=== PATIENT | female | born 1960 | race Caucasian/White ===

== ENCOUNTER → 2018-02-27 | Outpatient (CLI) | payer BC ==
[~2018-02-27] MED LIST: ACTOPLUS MET PO; ASPI325; ASPI325 PO; ASPI81EC; ATOR20 PO; BASAGLAR K100 UNIT/1 SC; BUPR100; CLOP75 PO; ESTR2; FENO145 PO; FENO160; Glimepiride4 MG PO; IRBE150 PO; Isosorbide Mono30 MG PO; Januvia50 MG PO; LIRA0.6P; METF850; METO50ER; Norco 5-325 Ta1 EACH PO; PROBIOTIC1 EAC1 PO; SERT25 PO; SERT50 PO; SITA50T2 PO; VITAMIN D35000 UNI1 PO; Valium5 MG PO; [UNRECOGNIZED DRUG - REMARK]
[2018-02-27 19:52] LABS: Microalb/Creat Ratio UR, Rand 6.361 mg/g (0.000-30.000); Microalbumin, Random Urine 8.46 mg/L (0.000-20.000)
== END ==
LOC: LAB EV 16:31 → LAB SHORT 16:31
PROVIDERS: Family Medicine
DX: E11.22 Type 2 diabetes mellitus with diabetic chronic kidney disease (principal)
CPT/HCPCS: 82043; 82570

== ENCOUNTER 2019-11-16 09:06 | Day surgery (SDC) | payer BC ==
[~2019-11-16] VITALS: Ht 157.5 cm; Wt 82.7 kg
[2019-11-16] MEDS ORDERED: BASAGLAR K100 UNIT/2 (09:51)
[2019-11-16] MEDS ORDERED: TRULICITY1.5 MG/0.5 (09:52)
[2019-11-16] MEDS ORDERED: METF500 PO (09:52)
--- NOTE | 2019-11-16 09:56 | NUR ---
11/16/19 0956 Brooklyn Wolf FIRST IV ATTEMPT IN RIGHT HAND INFILTRATED, BY ORSC.CML. SECOND ATTEMPT IN RIGHT WRIST WAS SUCCESSFUL AND TOLERATED WELL, BY ORS.RCL.
== END 2019-11-16 11:14 | disposition home or self-care (01) ==
LOC: ORSCSDS 09:06
PROVIDERS: Internal Medicine Gastroenterology
PROC: 0DB88ZX Excision of Small Intestine, Via Natural or Artificial Opening Endoscopic, Diagnostic (ICD-10-PCS; principal; 2019-11-16 10:30)
DX: R11.0 Nausea (principal); R19.7 Diarrhea, unspecified; R10.84 Generalized abdominal pain; G47.33 Obstructive sleep apnea (adult) (pediatric); K29.80 Duodenitis without bleeding; D64.9 Anemia, unspecified; E78.00 Pure hypercholesterolemia, unspecified; E11.9 Type 2 diabetes mellitus without complications; I10 Essential (primary) hypertension; R63.4 Abnormal weight loss; Z68.34 Body mass index [BMI] 34.0-34.9, adult; Z79.84 Long term (current) use of oral hypoglycemic drugs; Z79.01 Long term (current) use of anticoagulants; Z79.899 Other long term (current) drug therapy
CPT/HCPCS: 82947; 87081; 88305; J2704; J7120

== ENCOUNTER 2020-02-22 11:37 | Day surgery (SDC) | payer BC ==
[~2020-02-22] VITALS: Ht 160 cm; Wt 79.9 kg
[~2020-02-22 11:37] MED LIST changes: +BASAGLAR K100 UNIT/2; +Fergon240 M1 PO; +GABA300 PO; +METF500 PO; -METO50ER; +METO50ER PO; +Metformin HCl1000 MG PO; +TRULICITY1.5 MG/0.5 SC
[2020-02-22] MEDS ORDERED: METO100ER (13:08)
--- NOTE | 2020-02-22 15:52 | NUR ---
02/22/20 1552 Tammi Odell 1427 RECIEVED REPORT FROM [facility] HR ELEVATED 114, BP ELEVATED 186/89. DR FELIX REQUESTING 12 LEAD EKG. PT DENIES PAIN AT THIS TIME. 1454 PT STARTS TO COMPLAIN OF A "SCRATCHY" FEELING IN HER CHEST. EKG REVEALS ST WAVE ABNORMALITY. PT GIVE 325MG ASA PER . PT TRANSFERRED TO ED. REPORT GIVEN BY DR CARTER TO ED STAFF. PT LEFT IN THEIR CARE. MOM WAS UPDATED AND WENT HOME.
--- NOTE | 2020-02-22 15:55 | NUR ---
02/22/20 1555 Kerri Rothman LATE ENTRY FOR TODAY DR. CARTER CALLED TO ENDO ROOM TO HELP WITH PATIENT. PATIENT COUGHING/WRETCHING/ WITH A BLOODY NOSE, HR ELEVATED ALONG WITH BP. PATIENT HAD VOMITING EPISODE AT THE BEGINNING OF THE CASE, ZOFRAN GIVEN. WAITED UNTIL PATIENT CALMED DOWN TO CONTINUE ADVANCING THE COLONOSCOPE, SCOPE WAS ADVANCED PATIENT STARTED WRETCHING AGAIN. SCOPE CHANGED OUT TO PEDIATRIC SCOPE AND PATIENT WAS GIVEN 25MCG FENTANYL AND THEN ANOTHER 25MCG TWO MINUTES LATER. RN CONTINUED WITH PROPROFOL AND PATIENT SETTLED DOWN. DURING WITHDRAWAL OF SCOPE PATIENT STARTED TO WRETCH AND COUGH AND HAVE A BLOODY NOSE. DR. CARTER CALLED IN TO ASSIST WITH PATIENT BECAUSE HER HR AND BP WERE ELEVATED. PROCEDURE FINISHED AND PATIENT AWOKE BUT WAS COUGHING AND WRETCHING. PATIENT TAKEN TO HER ROOM AND REPORT WAS GIVEN TO CAMERON BOYKIN.
== END 2020-02-22 15:30 | disposition home or self-care (01) ==
LOC: ORSCSDS 11:37
PROVIDERS: Internal Medicine Gastroenterology
PROC: 0DBK8ZX Excision of Ascending Colon, Via Natural or Artificial Opening Endoscopic, Diagnostic (ICD-10-PCS; principal; 2020-02-22 12:45)
PROC: 0DBN8ZX Excision of Sigmoid Colon, Via Natural or Artificial Opening Endoscopic, Diagnostic (ICD-10-PCS; principal; 2020-02-22 12:45)
PROC: 0DBE8ZX Excision of Large Intestine, Via Natural or Artificial Opening Endoscopic, Diagnostic (ICD-10-PCS; principal; 2020-02-22 12:45)
PROC: 0DBH8ZX Excision of Cecum, Via Natural or Artificial Opening Endoscopic, Diagnostic (ICD-10-PCS; principal; 2020-02-22 12:45)
PROC: 0DBM8ZX Excision of Descending Colon, Via Natural or Artificial Opening Endoscopic, Diagnostic (ICD-10-PCS; principal; 2020-02-22 12:45)
DX: R19.7 Diarrhea, unspecified (principal); Z86.010 Personal history of colon polyps; K57.30 Diverticulosis of large intestine without perforation or abscess without bleeding; D50.9 Iron deficiency anemia, unspecified; D12.5 Benign neoplasm of sigmoid colon; D12.2 Benign neoplasm of ascending colon; D12.0 Benign neoplasm of cecum; D12.4 Benign neoplasm of descending colon; G47.33 Obstructive sleep apnea (adult) (pediatric); E11.9 Type 2 diabetes mellitus without complications; I10 Essential (primary) hypertension; Z87.891 Personal history of nicotine dependence; I25.10 Atherosclerotic heart disease of native coronary artery without angina pectoris; Z79.01 Long term (current) use of anticoagulants; Z79.84 Long term (current) use of oral hypoglycemic drugs
CPT/HCPCS: 82947; 83540; 83550; 85014; 88305; 93005; 93010; J2250; J2405; J2704; J3010; J7120

== ENCOUNTER → 2020-07-04 | Outpatient (CLI) | payer BC ==
[~2020-07-04] MED LIST changes: +METO100ER
== END | disposition home or self-care (01) ==
LOC: LAB 11:00 → LAB SHORT 11:00
DX: K52.9 Noninfective gastroenteritis and colitis, unspecified (principal); E83.42 Hypomagnesemia
CPT/HCPCS: 83986; 83993

== ENCOUNTER → 2020-07-07 | Outpatient (CLI) | payer BC | END | disposition home or self-care (01) | LOC: LAB 14:30 → LAB SHORT 14:30 | PROVIDERS: Internal Medicine | DX: K52.9 Noninfective gastroenteritis and colitis, unspecified (principal) | CPT/HCPCS: 82710 ==